=== PATIENT | female | born 1995 | race Asian ===

== ENCOUNTER 2017-09-17 10:52 | Inpatient (IN) | payer OTHER ==
[~2017-09-17] VITALS: Ht 165.1 cm; Wt 54.1 kg
[~2017-09-17 10:52] MED LIST: PNV1TABL11 PO
[2017-09-17] MEDS ORDERED: LIDOCAINE/PF 1%, 30ML ONE (11:05)
[2017-09-17] MEDS ORDERED: NEWBORN KIT ONE (11:05)
[2017-09-17] MEDS ORDERED: MISOPROSTOL 200 MCG TABLET ONE (11:06)
[2017-09-17] MEDS ORDERED: OXYTOCIN 30U/ 0.9% NaCL 500ML 500 ML ONE (11:06)
[2017-09-17] MEDS ORDERED: D5%-LACTATED RINGERS 1,000 ML IV SCH (11:07)
[2017-09-17] MEDS ORDERED: LACTATED RINGERS 1,000 ML IV SCH (11:07)
[2017-09-17] MEDS ORDERED: OXYTOCIN 30U/ 0.9% NaCL 500ML 500 ML IV ONE (11:07)
[2017-09-17] MEDS ORDERED: FENTANYL PF 100 MCG/2ML IV PRN (11:30)
[2017-09-17] MEDS ORDERED: TERBUTALINE 1 MG/ML, 1ML IVPush PRN (11:30)
[2017-09-17] MEDS ORDERED: ONDANSETRON 2MG/ML, 2ML IVPush PRN (11:30)
[2017-09-17] MEDS ORDERED: PLEASE ENTER HEIGHT AND WEIGHT MC SCH ×2 (11:30→12:30)
[2017-09-17] MEDS ORDERED: FENTANYL PF 100 MCG/2ML IVPush PRN (11:30)
[2017-09-17 12:06] VITALS: BP 121/71
[2017-09-17] MEDS ORDERED: IBUPROFEN 600 MG TABLET ONE (12:17)
[2017-09-17] MEDS ORDERED: OXYcodone/APAP 5/325MG TABLET ONE (12:17)
[2017-09-17 12:19] LABS: BASOPHILS # (AUTO) 0.08 x10^3/uL (0-0.1); BASOPHILS % (AUTO) 1 % (0-1); EOSINOPHILS # (AUTO) 0.02 x10^3/uL (0-0.4); EOSINOPHILS % (AUTO) 0 % (1-7); LYMPHOCYTES # (AUTO) 1.51 x10^3/uL (1-3.4); LYMPHOCYTES % (AUTO) 24 % (22-44); MD NO; MEAN CORPUSCULAR HEMOGLOBIN 31.6 pg (27.0-34.8); MEAN CORPUSCULAR HGB CONC 33.7 g/dL (32.4-35.8); MEAN CORPUSCULAR VOLUME 93.8 fL (80-100); MEAN PLATELET VOLUME 8.1 fL (7.4-10.4); MONOCYTES # (AUTO) 0.37 x10^3/uL (0.2-0.8); MONOCYTES % (AUTO) 6 % (2-9); NEUTROPHILS # (AUTO) 4.34 x10^3/uL (1.8-6.8); NEUTROPHILS % (AUTO) 69 % (42-75); PLATELET COUNT 183 x10^3/uL (130-400); RED CELL DISTRIBUTION WIDTH 13.1 % (9.6-15.2)
[2017-09-17] MEDS: OXYcodone/APAP 5/325MG TABLET PO PRN ×2 (12:22→18:29)
[2017-09-17] MEDS: IBUPROFEN 600 MG TABLET PO PRN ×2 (12:22→18:29)
[2017-09-17] MEDS: OXYTOCIN 30U/ 0.9% NaCL 500ML 500 ML IV SCH ×2 (12:26→22:26)
[2017-09-17] MEDS ORDERED: MISOPROSTOL 200 MCG TABLET PR PRN (12:30)
[2017-09-17] MEDS ORDERED: ONDANSETRON 2MG/ML, 2ML IV PRN (12:30)
[2017-09-17] MEDS ORDERED: HYDROcodone/APAP 5/325 TABLET PO PRN (12:30)
[2017-09-17 14:00] VITALS: BP 106/68
[2017-09-17 17:00] VITALS: BP 102/65
[2017-09-17] MEDS: DOCUSATE 100 MG CAPSULE PO PRN (18:29)
[2017-09-17 19:14] VITALS: BP 107/67
[2017-09-17 20:50] LABS: BASOPHILS # (AUTO) 0.02 x10^3/uL (0-0.1); BASOPHILS % (AUTO) 0 % (0-1); EOSINOPHILS # (AUTO) 0.03 x10^3/uL (0-0.4); EOSINOPHILS % (AUTO) 0 % (1-7); LYMPHOCYTES # (AUTO) 1.83 x10^3/uL (1-3.4); LYMPHOCYTES % (AUTO) 18 % (22-44); MD NO; MEAN CORPUSCULAR HEMOGLOBIN 33.1 pg (27.0-34.8); MEAN CORPUSCULAR HGB CONC 34.6 g/dL (32.4-35.8); MEAN CORPUSCULAR VOLUME 95.6 fL (80-100); MEAN PLATELET VOLUME 8.1 fL (7.4-10.4); MONOCYTES # (AUTO) 0.77 x10^3/uL (0.2-0.8); MONOCYTES % (AUTO) 8 % (2-9); NEUTROPHILS # (AUTO) 7.35 x10^3/uL (1.8-6.8); NEUTROPHILS % (AUTO) 74 % (42-75); PLATELET COUNT 168 x10^3/uL (130-400); RED BLOOD COUNT 3.34 x10^6/uL (3.82-5.3); RED CELL DISTRIBUTION WIDTH 13.1 % (9.6-15.2)
[2017-09-17 23:36] VITALS: BP 99/5
[2017-09-18] MEDS: IBUPROFEN 600 MG TABLET PO PRN ×4 (00:27→19:33)
[2017-09-18] MEDS: OXYcodone/APAP 5/325MG TABLET PO PRN ×4 (00:57→19:33)
[2017-09-18 03:46] VITALS: BP 98/63
[2017-09-18] MEDS: DOCUSATE 100 MG CAPSULE PO PRN ×2 (07:17→19:33)
[2017-09-18] MEDS: PRENATAL VIT/IRON/FA 1 EACH TABLET PO SCH (07:17)
[2017-09-18 07:30] VITALS: BP 113/71
[2017-09-18] MEDS: OXYTOCIN 30U/ 0.9% NaCL 500ML 500 ML IV SCH ×2 (08:26→18:26)
[2017-09-18] MEDS ORDERED: BISACODYL 10 MG SUPP PR PRN (09:00)
[2017-09-18 19:30] VITALS: BP 94/55
[2017-09-19] MEDS: OXYTOCIN 30U/ 0.9% NaCL 500ML 500 ML IV SCH (04:26)
[2017-09-19] MEDS: OXYcodone/APAP 5/325MG TABLET PO PRN ×2 (06:57→13:57)
[2017-09-19] MEDS: IBUPROFEN 600 MG TABLET PO PRN ×2 (06:57→13:58)
[2017-09-19 07:00] VITALS: BP 112/77
[2017-09-19] MEDS: DOCUSATE 100 MG CAPSULE PO PRN (07:02)
[2017-09-19] MEDS: PRENATAL VIT/IRON/FA 1 EACH TABLET PO SCH (13:57)
[2017-09-19] MEDS ORDERED: IBUP-1222 PO (16:43)
[2017-09-19] MEDS ORDERED: OXYC-302 PO (16:44)
== END 2017-09-19 18:00 | disposition home or self-care (01) | DRG 775 ==
LOC: LDOP 10:52 → EDIP 11:05 → LDIP 11:19 → 2NW 14:10
PROVIDERS: ADMIT Obstetrics & Gynecology; ATTEND Obstetrics & Gynecology
PROC: 10E0XZZ Delivery of Products of Conception, External Approach (ICD-10-PCS; principal; 2017-09-17)
PROC: 10907ZC Drainage of Amniotic Fluid, Therapeutic from Products of Conception, Via Natural or Artificial Opening (ICD-10-PCS; 2017-09-17)
PROC: 0UQMXZZ Repair Vulva, External Approach (ICD-10-PCS; 2017-09-17)
DX: O24.420 Gestational diabetes mellitus in childbirth, diet controlled (principal); O62.3 Precipitate labor; Z37.0 Single live birth; Z3A.38 38 weeks gestation of pregnancy; O71.82 Other specified trauma to perineum and vulva
CPT/HCPCS: 36415; 82962; 85025; 86850; 86900; J2590; J7120